=== PATIENT | male | born 1970 | race Caucasian/White ===

== ENCOUNTER 2025-05-09 09:08 | Emergency (ER) | payer OTHER, SELFPAY ==
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
[2025-05-09 09:10] VITALS: BP 144/84; PULSE 48; RESP 16; TEMP 36.6; O2SAT 98; BMI 30.7
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
[2025-05-09] MEDS: Lidocaine 4 % Patch ADH..PATCH 1 PATCH TRANSDERMA (10:05)
[2025-05-09 11:19] VITALS: BP 144/84; PULSE 48; RESP 16; TEMP 36.6; O2SAT 98
--- OUTSIDE RECORDS SUMMARY | 2025-05-09 11:22 | XMS_ITS | Encounter Summary ---
Author Organization [facility] Address [address] [place] [address] Phone Care Team Providers Care Director Of Group Sales Name Role Phone Anne Carbajal MD Primary Care Provider Encounter Details Date Type Department Care Team (Late st Contact Info) Description 08/26/2021 Procedure Pass [facility] Admitting Dept Virtual Department [address] [place] [address] Social History Tobacco Use Types Packs/Day Years Used Date Smoking Tobacco: Former Cigarettes Q uit: 2012 Smokeless Tobacco: Never Alcohol Use Standard Drinks/Week Comments Not Currently 0 (1 standard drink = 0.6 oz pur e alcohol) occasionally Sex and Gender Information Value Date Recorded Sex Assigned at Male 07/11/2017 1:36 PM EST Legal Sex Male 9:35 PM EDT Gender Identity Male 07/11/2017 1:36 PM EST Sexual Orientation Straight 07/11/2017 1: 36 PM EST documented as of this encounter Plan of Treatment Not on file documented as of this encounter Visit Diagnoses Not on filedocumented in this encounter Care Teams Director Of Group Sales Relationship Specialty Start Date End Date Anne Carbajal MD [address] [place] [id number] PCP - General Internal Medicine 08/26/21 documented as of this encounter Additional Source Comments The information contained in this document represents components of the legal health record. It is not the complete legal health record.[facility]
--- OUTSIDE RECORDS SUMMARY | 2025-05-09 11:23 | XMS_ITS | Clinical Summary ---
Author Organization [facility] Address [address] [address] Phone Care Team Providers Care Crossing Gateman Name Role Phone Anne Carbajal MD Primary Care Provider Allergies Active Allergy Reactions Criticality Noted Date Comments Zolpidem 08/07/2019 Other reaction(s): Feeling irritable Medications acetaminophen (TYLENOL) 500 MG tablet Take 1,000 mg by mouth every 8 (eight) hours as needed. 1 Active amLODIPine (NORVASC) 10 MG tablet TAKE ONE TABLET BY MOUTH ONCE DAILY FOR BLOOD PRESSURE/HEART, DO NOT TAKE WITH GRAPEFRUIT JUICE 1 Active atorvastatin (LIPITOR) 10 MG tablet TAKE ONE TABLET BY MOUTH ONCE DAILY FOR CHOLESTEROL NO SPLITTING 1 Active clonazePAM (KLONOPIN) 0.5 MG tablet TAKE ONE TABLET BY MOUTH TWICE DAILY NEEDED FOR ANXIETY FOR ANXIETY 1 Active diclofenac sodium (VOLTAREN) 1 % Gel APPLY 2 GRAMS TOPICALLY FOUR TIMES A DAY FOR OSTEOARTHRITIS - USE DOSING CARD PROVIDED IN BOX 1 Active gabapentin (NEURONTIN) 300 MG capsule Take 1 capsule by mouth nightly at bedtime. 1 Active meloxicam (MOBIC) 15 MG tablet TAKE ONE TABLET BY MOUTH ONCE DAILY FOR PAIN 1 Active omeprazole (PRILOSEC) 20 MG capsule TAKE TWO CAPSULES BY MOUTH EVERY MORNING 30 MINUTES BEFORE BREAKFAST 1 Active propranoloL (INNOPRAN XL) 80 MG 24 hr capsule Take 1 capsule by mouth daily. 1 Active QUEtiapine (SEROQUEL) 50 MG tablet TAKE ONE TABLET BY MOUTH EVERY MORNING FOR 30 DAYS, AND TAKE THREE TABLETS AT BEDTIME FOR 30 DAYS FOR MOOD STABILITY FOR MOOD STABILTY - SLEEP 1 Active sildenafiL (VIAGRA) 50 mg tablet TAKE ONE TABLET BY MOUTH ONCE A WEEK TAKE 1 HOUR PRIOR TO SEXUAL ACTIVITY 1 Active ondansetron (ZOFRAN) 4 MG tablet TAKE ONE TABLET BY MOUTH TWICE DAILY NEEDED FOR VOMITING/NAUSEA 1 Active SUMAtriptan (IMITREX) 100 MG tablet TAKE ONE TABLET BY MOUTH DIRECTED AT ONSET OF HEADACHE; MAY REPEAT IN 2 HOURS IF FIRST DOSE IS NOT EFFECTIVE 1 Active prazosin (MINIPRESS) 2 MG capsule Take 2 mg by mouth nightly at bedtime as needed. Active DULoxetine (CYMBALTA) 20 MG capsule TAKE TWO CAPSULES BY MOUTH ONCE DAILY 2 Active Active Problems No known active problems Social History Tobacco Use Types Packs/Day Years Used Date Smoking Tobacco: Former Cigarettes Q uit: 2012 Smokeless Tobacco: Never Alcohol Use Standard Drinks/Week Comments Not Currently 0 (1 standard drink = 0.6 oz pur e alcohol) occasionally Education Answer Date Recorded Are you interested in more education? Not on rosetta e 10/09/2022 Are you concerned about learning? Not on file 10/09/2022 No 10/09/2022 No 10/09/2022 Digital Access Answer Date Recorded No 11/07/2022 No 11/07/2022 No 11/07/2022 Reliable internet access at home? Not on file 11/07/2022 Device with a working camera? Not on file Sex and Gender Information Value Date Recorded Sex Assigned at Male 07/11/2017 1:36 PM EST Legal Sex Male 9:35 PM EDT Gender Identity Male 07/11/2017 1:36 PM EST Sexual Orientation Straight 07/11/2017 1: 36 PM EST Last Filed Vital Signs Vital Sign Reading Time Taken Comments Blood Pressure 117/84 08/26/2021 9:27 AM EDT Pulse 61 08/26/2021 9:27 AM EDT Temperature 35.9 C (96.6 F) 08/26/2021 9:12 AM EDT Respiratory Rate 16 08/26/2021 9:27 AM EDT Oxygen Saturation 96% 08/26/2021 9:27 AM EDT Inhaled Oxygen Concentration - - Weight 97.5 kg (215 lb) 08/22/2021 9:58 AM EST Height 180.3 cm (5' 11 ) 08/22/2021 9:58 AM EST Body Mass Index 29.99 08/22/2021 9:58 AM EST Plan of Treatment Health Maintenance Due Date Last Done Comments LIPID PANEL 1970 DEPRESSION SCREENING 1982 SMOKING Hx and SMOKELESS TOBACCO SCREENING 1983 HEPATITIS C SCREENING 1988 HIV ONE-TIME SCREENING (18-6 5 YEARS) 1988 COLOGUARD 2015 FIT TEST 2015 FOBT 2015 SIGMOIDOSCOPY 2015 VIRTUAL COLONOSCOPY 2015 PNEUMOCOCCAL VACCINES (50+ years) (1 of 1 - PCV) 2020 ZOSTER VACCINES (2 of 2) 05/14/2021 03/19/2021 INFLUENZA VACCINE (#1) 2025 06/16/2007 COVID-19 VACCINE (3 - 2024-2 6 season) 2025 03/07/2021, 02/03/2021 Adult Td,Tdap Booster 03/19/2031 03/19/2021 COLONOSCOPY 08/27/2031 08/26/2021 COLORECTAL CANCER SCREENING 08/27/2031 RSV VACCINE (1 - 1-dose 75+ series) 2045 HEPATITIS A VACCINES Aged Out No long er eligible based on patient's age to complete this topic HIB VACCINES Aged Out No longer eligi ble based on patient's age to complete this topic MENINGOCOCCAL VACCINES (ACWY) Aged Out No longer eligible based on patient's age to complete this topic MENINGOCOCCAL VACCINES (B) Aged Out N o longer eligible based on patient's age to complete this topic Medical Devices Not on file Procedures Procedure Name Priority Date/Time Associated Diagnosis Comments ENDOSCOPY, COLON 08/26/2021 8:47 AM EDT from Last 3 Months or Most Recently Relevant to Health Maintenance Results * ENDOSCOPY, COLON (08/26/2021 8:47 AM EDT) Narrative Transcriptions Liset Purcell MD - 08/26/2021 8:47 AM EDT Patient Name: William Pollack Attending MD:: LISET PURCELL MD Procedure Date: 08/26/2021 8:47 AM Date of : 1970 Age: 51 Admit Type: Outpatient Gender: Male Room: [place] [address] Referring MD: ANNE CARBAJAL MD Exam Type: Colonoscopy Indications: Screening in patient at increased risk: Colorectal cancer in father before age 60, Last colonoscopy: July 2016 Medications: Monitored Anesthesia Care Procedure: Informed consent was obtained from the patientafter discussion of the indications, limitations, alternatives, benefits, and risks of the procedure. Risks specifically discussed include but are not limited to medication reactions, missed lesions, bleeding, perforation, or the need for emergent surgery. Throughout the procedure, the patient's blood pressure, pulse, end-tidal CO2, and oxygensaturations were monitored continuously. The Olympus adult variable colonoscope [id number] #4 was introduced through the anus and advanced to the cecum, identified by the appendiceal orifice, ileocecal valve and palpation. The colonoscopy was performed without difficulty. The patient tolerated the procedure well. The quality of the bowel preparation was good. The ileocecal valve,appendiceal orifice, and rectum were photographed. Complications: No immediate complications. Estimated blood loss:None. Findings: The perianal and digital rectal examinations were normal. Pertinent negatives include normalsphincter tone. Retroflexion in the right colon was performed. The entire examined colon appeared normal on direct and retroflexion views. Impression: - The entire examined colon is normal on direct and retroflexion views. - No specimens collected. Recommendation: - Repeat colonoscopy in 5 years for screeningpurposes. LISET PURCELL MD 08/26/2021 9:11:42 AM This report has been signed electronically. Number of Addenda: 0 Note Initiated On: 08/26/2021 8:47 AM Procedure Code(s): --- Professional --- 97421, Colonoscopy, flexible; diagnostic, including collection of specimen(s) by brushing or washing, when performed (separateprocedure) --- Technical --- 37116, Colonoscopy, flexible; diagnostic, including collection of specimen(s) by brushing or washing, when performed (separateprocedure) Diagnosis Code(s): --- Professional --- Z80.0, Family history of malignant neoplasm of digestive organs --- Technical --- Z80.0, Family history of malignant neoplasm of digestive organs CPT copyright 2020 [employer]. All rights reserved. The codes documented in this report are preliminary and upon priest reviewmay be revised to meet current compliance requirements. Procedure Date: 08/26/2021 8:47:[address] [place] [id number] Anne Carbajal MD GI PROCEDURE ORDERABLES Susan l Result from Last 3 Months or Most Recently Relevant to Health Maintenance Insurance [facility] Care Teams Crossing Gateman Relationship Specialty Start Date End Date Anne Carbajal MD [address] [place] [id number] PCP - General Internal Medicine 08/26/21 Additional Source Comments The information contained in this document represents components of the legal health record. It is not the complete legal health record.[facility]
== END 2025-05-09 11:19 | disposition home or self-care (01) ==
PROVIDERS: Emergency Provider Emergency Medicine
DX: S13.4XXA Sprain of ligaments of cervical spine, initial encounter (principal); V49.49XA Driver injured in collision with other motor vehicles in traffic accident, initial encounter; Y93.9 Activity, unspecified; Y92.9 Unspecified place or not applicable; M54.2 Cervicalgia; R51.9 Headache, unspecified; M54.9 Dorsalgia, unspecified
CPT/HCPCS: 70450; 72125; 96372; 99283; 99284; J1885

== ENCOUNTER → 2025-05-09 09:51 | Outpatient (BNV) | payer OTHER, SELFPAY | PROVIDERS: Emergency Provider Emergency Medicine; Visit Provider Radiology Diagnostic Radiology | DX: M54.2 Cervicalgia (principal); R51.9 Headache, unspecified; V89.2XXA Person injured in unspecified motor-vehicle accident, traffic, initial encounter | CPT/HCPCS: 70450; 72125 ==